=== PATIENT | female | born 1980 | race Caucasian/White ===

== ENCOUNTER 2016-12-17 08:11 | Day surgery (SDC) | payer BC ==
[2016-12-13 09:55] VITALS: BMI 26.0
[2016-12-17] MEDS ORDERED: BUPIVACAINE HCL/PF 0.5% (5MG/ML) 10 ML VIAL ONE (09:16)
[2016-12-17] MEDS ORDERED: LIDOCAINE 1%/EPI 1:100000 (50 ML MULTI DOSE VIAL) ONE (09:16)
[2016-12-17] MEDS ORDERED: ONDANSETRON 4 MG/2 ML VIAL IVPUSH PRN (09:58)
[2016-12-17] MEDS ORDERED: oxyCODONE HCL 5 MG TABLET PO PRN (09:58)
[2016-12-17] MEDS ORDERED: LACTATED RINGERS SOLUTION 1,000 ML IV SCH (10:00)
[2016-12-17] MEDS ORDERED: MIDAZOLAM HCL 2 MG/2 ML SINGLE DOSE VIAL ONE (10:02)
[2016-12-17] MEDS ORDERED: PROPOFOL 20 ML ONE (10:02)
[2016-12-17] MEDS ORDERED: ceFAZolin SODIUM 1 GM VIAL IVPB ONE (10:26)
[2016-12-17] MEDS ORDERED: BUPIVACAINE HCL/PF 0.5% (5MG/ML) 10 ML VIAL IJ ONE (10:30)
[2016-12-17] MEDS ORDERED: LIDOCAINE 1%/EPI 1:100000 (50 ML MULTI DOSE VIAL) INF ONE (10:30)
--- NOTE | 2016-12-17 10:52 | HP ---
Satellite [facility] - Chief Complaint Chief Complaint: left knee pain - Past Medical History Allergies/Adverse Reactions: Allergies Allergy/AdvReac Type Severity Reaction Status Date / Time No Known Allergies Allergy Verified 12/17/16 08:39 ...LMP: 12/07/16 - Current Medications Current Medications: Home Medications Medication Instructions Recorded Ergocalciferol (Vitamin D2) 2,000 unit PO DAILY 12/13/16 [Vitamin D2] Oxycodone HCl/Acetaminophen 1 - 2 tab PO Q6H #50 tab MDD 8 12/17/16 [Percocet 5-325 mg Tablet -] Satellite Physical Exam - Physical Examination Vital Signs: Vital Signs Period Temp Pulse Resp BP Sys/Mcintyre Pulse Ox Last 24 Hr 97.8 F 75 18 131/82 99 General Appearance: Well Nourished, Well Developed, Alert & Oriented x3 ENT: Clear Lung: Normal air movement Heart: Regular rate & rhythm Extremities: Other (left knee- + swelling, + ttp, decr rom, + mcmurrays, nvi MRI + mmt) Neurological: Intact, Alert, Oriented Satellite Impression/Plan - Impression/Plan Impression: left knee internal derangement Operative Procedure: left knee arthroscopy Date to be Performed: 12/17/16
--- NOTE | 2016-12-17 10:53 | OP ---
Operative Note - Note: Operative Date: 12/17/16 ([facility]) Pre-Operative Diagnosis: left knee internal derangement Operation: left knee arthroscopy with PMM Post-Operative Diagnosis: Same as Pre-op Surgeon: Alejandro Chandler Skip Loader: Merlin Christine Anesthesia: General, Local Specimens Removed: shavings Estimated Blood Loss (mls): 5 Operative Report Dictated: Yes
[2016-12-17 12:03] VITALS: TEMP 98.2
[2016-12-17 13:06] VITALS: BP 118/67; PULSE 73
--- NOTE | 2016-12-17 13:19 | OP ---
DATE OF OPERATION: 12/17/2016 PROCEDURE: Arthroscopy left knee with partial medial meniscectomy PREOPERATIVE DIAGNOSIS: Left medial meniscus. POSTOPERATIVE DIAGNOSIS: Left medial meniscus. SURGICAL ATTENDING: Alejandro Chandler MD ANESTHESIA: General with LMA CLOSURE: With 4-0 Nylon COMPLICATIONS: None ESTIMATED BLOOD LOSS: Negligible CONDITION: To recovery room in stable condition DESCRIPTION OF OPERATIVE PROCEDURE: Patient was taken to the operating room on December 17, 2016. General anesthesia with LMA was administered by the anesthesiologist. IV Kefzol was administered prophylactically prior to the case. Left lower extremity was prepped and draped in the usual sterile fashion. The superolateral and mediolateral infrapatellar portal sites were infiltrated with 1% Xylocaine with epinephrine. Superolateral portal was made with a 15-blade followed by blunt trocar. The knee was aspirated and inflated with a cocktail of 10 mL of 1% Xylocaine, 10 mL of 0.5% Marcaine, and 20 mL of arthroscopic saline. The medial and lateral infrapatellar portals were then made with the 15-blade followed by the blunt trocar. The scope was placed in the lateral suprapatellar portal and up into suprapatellar pouch. Pouch was visualized to be clean. The medial and lateral gutters were visualized to be clean. The undersurface of the patella and trochlea were visualized to be intact. With valgus stress, the medial compartment was entered. The medial menisci had a flap tear over its anterior portion, which was dbrided back to smooth, stable meniscal tissue with meniscal biter and arthroscopic shaver. The posterior was found to be intact. The medial femoral condyle was run and found to be intact as was the medial tibial plateau. At 90 degrees the ACL and PCL were visualized and both found to be intact. In the figure 4 position, the lateral compartment of the knee was entered. The lateral meniscus was visualized, probed, found to be intact. The lateral femoral condyle was run and found to be intact as was the lateral tibial plateau. The knee was irrigated with copious amounts of irrigation. The portals were closed with 4-0 nylon. Prior to closure, 20 mL of 0.5% Marcaine was infused into the knee for postoperative analgesia. A sterile pressure dressing was placed over the knee. Patient was awakened from anesthesia and transferred to recovery in stable condition. No complications. Estimated blood loss negligible. ALEJANDRO CHANDLER M.D. [id number]
--- NOTE | 2016-12-20 09:20 | PATH ---
Surgical Pathology Report Patient Name: TOMMIE KEARNEY [facility]. Rec. #: [id number] /Age/Gender: 1980 (Age: 36) / F Account: [id number] Location: [facility] SURGICAL Taken: 12/17/2016 Received: 12/17/2016 Reported: 12/20/2016 Physicians: Alejandro Chandler M.D. Specimen(s) Received SHAVINGS LEFT KNEE Clinical History Left meniscus tear Final Diagnosis KNEE, LEFT, ARTHROSCOPIC SHAVING: FIBROCARTILAGE WITH MYXOID DEGENERATIVE CHANGES, ALONG WITH PORTIONS OF SYNOVIUM WITH FIBROSIS, AND HYALINE CARTILAGE. Electronically Signed Joesph Teixeira M.D. Gross Description Received in formalin labeled "left knee shavings," is a 1.7 x 1.2 x 0.2 cm aggregate of tobar-yellow soft tissue fragments. The specimen is submitted in toto in one cassette. 12/17/201612/17/2016
== END 2016-12-17 13:06 | disposition home or self-care (01) ==
LOC: JASU-SURG 08:11
PROVIDERS: ATTEND Orthopaedic Surgery
PROC: 0SBD4ZZ Excision of Left Knee Joint, Percutaneous Endoscopic Approach (ICD-10-PCS; principal; 2016-12-17 09:45)
DX: S83.242A Other tear of medial meniscus, current injury, left knee, initial encounter (principal); X58.XXXA Exposure to other specified factors, initial encounter; Y93.9 Activity, unspecified; Y92.9 Unspecified place or not applicable
CPT/HCPCS: 84703; 88304-TC; 94760

== ENCOUNTER 2017-05-21 13:13 | Emergency (ER) | payer BC ==
[2017-05-21 13:18] VITALS: BP 154/86; PULSE 80; TEMP 98.5; BMI 26.4
--- NOTE | 2017-05-21 14:33 | PDOC ---
History of Present Illness - General Chief Complaint: ,Possible Stated Complaint: POSSIBLE Time Seen by Provider: 05/21/17 13:51 - History of Present Illness Initial Comments: 05/21/17 14:25 CHIEF COMPLAINT: HISTORY OF PRESENT ILLNESS: 36 yo F F with Rh negative blood type F presents to [facility] with concerns regarding Rhogam. Patient states that she is , LMP was early March. She denies any vaginal bleeding or abdominal cramping. She has no complaints, and states she just "thought she needed Rhogam as soon as I found out I was ." No recent travel or sick contacts. PAST MEDICAL HISTORY: Denies past medical history FAMILY HISTORY: Denies SOCIAL HISTORY:Denies tobacco, alcohol, illicit drug use. SURGICAL HISTORY: Denies ALLERGIES: No known drug allergies REVIEW OF SYSTEMS General/Constitutional: Denies fever or chills. HEENT: Denies change in vision. Denies ear pain or discharge. Denies sore throat. Cardiovascular: Denies chest pain or shortness of breath. Respiratory: Denies cough, wheezing, or hemoptysis. Gastrointestinal: Denies nausea, vomiting, diarrhea or constipation. Genitourinary: Denies dysuria, frequency, or change in urination. Musculoskeletal: Denies joint or muscle swelling or pain. Denies neck or back pain. Skin and breasts: Denies rash or easy bruising. PHYSICAL EXAM General Appearance: Well-appearing, appropriately dressed. No apparent distress , no intoxication. HEENT: EOMI, PERRLA. No photophobia, scleral icterus. Respiratory/Chest: Lungs CTAB. Cardiovascular: RRR. S1, S2. Gastrointestinal/Abdominal: Normal bowel sounds. Abdomen soft, non-distended. No tenderness or rebound tenderness. No organomegaly, pulsatile mass, guarding , hernia, hepatomegaly, splenomegaly. Musculoskeletal/Extremities: Normal inspection. FROM of all extremities, normal capillary refill. No tenderness to extremities, pedal edema, swelling, erythema or deformity. Integumentary: Appropriate color, dry, warm. No cyanosis, erythema, jaundice or rash Neurologic: roadmaster II-XII intact. Fully oriented, alert. Appropriate mood/affect. Motor strength 5/5. No appreciable EOM palsy, facial droop or sensory deficit. 05/21/17 14:42 Past History - Past Medical History Allergies/Adverse Reactions: Allergies Allergy/AdvReac Type Severity Reaction Status Date / Time No Known Allergies Allergy Verified 05/21/17 13:18 Home Medications: Ambulatory Orders NK [No Known Home Medication] 05/21/17 Other medical history: NONE - Psycho/Social/Smoking Cessation Hx Anxiety: No Suicidal Ideation: No Smoking History: Never smoked Hx Alcohol Use: Yes (SOCIAL) Drug/Substance Use Hx: No Substance Use Type: None Hx Substance Use Treatment: No *Physical Exam - Vital Signs Last Vital Signs Temp Pulse Resp BP Pulse Ox 98.5 F 80 20 154/86 100 05/21/17 13:15 05/21/17 13:15 05/21/17 13:15 05/21/17 13:15 05/21/17 13:15 ED Treatment Course - ADDITIONAL ORDERS Additional order review: Laboratory Results 05/21/17 13:52 Urine HCG, Qual Positive Medical Decision Making - Medical Decision Making 05/21/17 16:02 36 yo F F with Rh negative blood type F presents to fast track with concerns regarding Rhogam. Explained to patient indications for Rhogam and that she does not require this until she is 26-28 weeks or has vaginal bleeding during . Advised patient to return if she does experience vaginal bleeding and to f/u with OB for further evaluation of her new . Patient and verbalized understanding and agree to plan. *DC/Admit/Observation/Transfer Diagnosis at time of Disposition: - Discharge Dispostion Disposition: HOME Condition at time of disposition: Stable Admit: No - Patient Instructions Printed Discharge Instructions: Rh Explained, Rh Incompatibility and Isoimmunization Additional Instructions: Please establish care with a new OBGYN doctor at [facility] for further concerns regarding your . You do not need a Rhogam shot today; but you will need one at 26-28 weeks during your . If you begin to have any vaginal bleeding, fever, chills, cramping, pain, or any new or worsening symptoms, please return to the ER.
== END 2017-05-21 14:37 | disposition home or self-care (01) ==
LOC: JERFT 13:13 → JER 13:13 → JERFT 14:37
DX: O26.891 Other specified pregnancy related conditions, first trimester (principal); O36.0910 Maternal care for other rhesus isoimmunization, first trimester, not applicable or unspecified; Z3A.00 Weeks of gestation of pregnancy not specified
CPT/HCPCS: 84703; 99281-25

== ENCOUNTER 2017-06-04 17:57 | Emergency (ER) | payer BC ==
[2017-06-04 18:03] VITALS: BMI 26.5
--- NOTE | 2017-06-04 18:21 | PDOC ---
History of Present Illness - General History Source: Patient - History of Present Illness Timing/Duration: reports: constant <Harrison Arnold - Last Filed: 06/04/17 18:58> <Eloisa Martines - Last Filed: 06/04/17 20:37> - General Chief Complaint: Vaginal Bleeding Stated Complaint: VAGINAL BLEEDING () Time Seen by Provider: 06/04/17 18:10 Past History - Past Medical History Other medical history: NONE - Psycho/Social/Smoking Cessation Hx Anxiety: No Suicidal Ideation: No Smoking History: Never smoked Hx Alcohol Use: No Drug/Substance Use Hx: No Substance Use Type: None Hx Substance Use Treatment: No <Harrison Arnold - Last Filed: 06/04/17 18:58> <Eloisa Martines - Last Filed: 06/04/17 20:37> - Past Medical History Allergies/Adverse Reactions: Allergies Allergy/AdvReac Type Severity Reaction Status Date / Time No Known Allergies Allergy Verified 06/04/17 18:03 Home Medications: Ambulatory Orders NK [No Known Home Medication] 05/21/17 Review of Systems - Review of Systems Constitutional: No: Chills, Fever ABD/GI: No: Nausea, Vomiting, Abdominal cramping : No: Dysuria <Harrison Arnold - Last Filed: 06/04/17 18:58> *Physical Exam - Vital Signs Last Vital Signs Temp Pulse Resp BP Pulse Ox 98.0 F 101 H 20 147/100 100 06/04/17 18:00 06/04/17 18:00 06/04/17 18:00 06/04/17 18:00 06/04/17 18:00 - Physical Exam General Appearance: Yes: Appropriately Dressed. No: Apparent Distress HEENT: positive: Normal Voice Neck: positive: Supple Respiratory/Chest: negative: Respiratory Distress Female Pelvic Exam: positive: normal external exam, normal adnexa, vaginal bleeding (no clots, Os fingertip). negative: CMT, adnexal tenderness Gastrointestinal/Abdominal: positive: Normal Bowel Sounds, Soft. negative: Tender, Distended, Guarding Integumentary: positive: Dry, Warm Neurologic: positive: Fully Oriented, Alert, Normal Mood/Affect <Harrison Arnold - Last Filed: 06/04/17 18:58> - Vital Signs Last Vital Signs Temp Pulse Resp BP Pulse Ox 98.0 F 101 H 20 147/100 100 06/04/17 18:00 06/04/17 18:00 06/04/17 18:00 06/04/17 18:00 06/04/17 18:00 <Eloisa Martines - Last Filed: 06/04/17 20:37> ED Treatment Course - RADIOLOGY Radiology Studies Ordered: Category Date Time Status TRANSVAGINAL US PREG [US] Stat Ultrasound 06/04/17 18:03 Ordered <Harrison Arnold - Last Filed: 06/04/17 18:58> - ADDITIONAL ORDERS Additional order review: Laboratory Results 06/04/17 06/04/17 06/04/17 19:50 18:30 18:10 Beta HCG, Quant Urine Color Ltyellow Urine Appearance Clear Urine pH 6.0 Urine Protein Negative Urine Glucose (UA) Negative Urine Ketones Negative Urine Blood 2+ H Urine Nitrite Negative Urine Bilirubin Negative Urine Urobilinogen Negative Ur Leukocyte Esterase Negative Urine RBC 2 Urine WBC <1 Blood Type A NEGATIVE A NEGATIVE Antibody Screen Negative 06/04/17 18:10 Beta HCG, Quant 1210.9 Urine Color Urine Appearance Urine pH Urine Protein Urine Glucose (UA) Urine Ketones Urine Blood Urine Nitrite Urine Bilirubin Urine Urobilinogen Ur Leukocyte Esterase Urine RBC Urine WBC Blood Type Antibody Screen - Medications Given in the ED: ED Medications Discontinued Medications Generic Name Dose Route Start Last Admin Trade Name Freq PRN Reason Stop Dose Admin Rho Immune Globulin 300 unit 06/04/17 19:17 06/04/17 20:33 Rhogam Plus IM 06/04/17 19:18 300 unit ONCE ONE Administration <Eloisa Martines - Last Filed: 06/04/17 20:37> Medical Decision Making - Medical Decision Making 06/04/17 18:16 36 yo F, , (1 spon AB) ~ 7 weeks by dates, scheduled for first on June 14, here with significant vaginal bleeding that started approximately 20 minutes 20 minutes ago with multiple clots. No abdominal cramping, back pain, dysuria, nausea, vomiting, fever or chills See exam 1st trimester bleed Stable w/ benign abd and sig vag bleed w/ fingertip OS R/o spon AB vs ectopic vs vag bleed of nl preg -T&S (pt reports A neg blood type, will a/w results today prior to rhogam) -Beta -UA -US 06/04/17 18:21 06/04/17 18:58 Signed out to JESSIE Martines pending beta, type and screen and ultrasound <Harrison Arnold - Last Filed: 06/04/17 18:58> *DC/Admit/Observation/Transfer <Harrison Arnold - Last Filed: 06/04/17 18:58> - Discharge Dispostion Admit: No <Eloisa Martines - Last Filed: 06/04/17 20:37> Diagnosis at time of Disposition: Spontaneous - Discharge Dispostion Disposition: HOME Condition at time of disposition: Stable - Patient Instructions Printed Discharge Instructions: DI for Miscarriage, Dealing With Miscarriage Additional Instructions: Follow up with your [facility] next week on the as scheduled. Return if any concern for further evaluation. You need to have your blood levels rechecked to be sure that your Beta HCG level continue to decrease. Print Language: ROMANSH
[2017-06-04 18:36] LABS: URINE APPEARANCE CLEAR; URINE BILIRUBIN NEGATIVE (NEGATIVE); URINE BLOOD 2+ (NEGATIVE); URINE COLOR LTYELLOW; URINE GLUCOSE (UA) NEGATIVE (NEGATIVE); URINE KETONE NEGATIVE (NEGATIVE); URINE LEUK ESTERASE NEGATIVE (NEGATIVE); URINE NITRITE NEGATIVE (NEGATIVE); URINE PROTEIN NEGATIVE (NEGATIVE); URINE UROBILINOGEN NEGATIVE mg/dL (0.2-1.0)
[2017-06-04 18:45] LABS: URINE RBC 2 /hpf (0-3); URINE WBC <1 /hpf (3-5)
[2017-06-04] MEDS ORDERED: RHO(D) IMMUNE GLOBULIN 1,500 UNIT DISP.SYRIN IM ONE (19:17)
[2017-06-04 20:46] VITALS: BP 136/89; PULSE 78; TEMP 98.4
== END 2017-06-04 20:46 | disposition home or self-care (01) ==
LOC: JER 17:57
PROC: 3E0234Z Introduction of Serum, Toxoid and Vaccine into Muscle, Percutaneous Approach (ICD-10-PCS; principal; 2017-06-04)
DX: O02.1 Missed abortion (principal); Z3A.01 Less than 8 weeks gestation of pregnancy; Z29.13 Encounter for prophylactic Rho(D) immune globulin
CPT/HCPCS: 36415; 76817-TC; 81003; 81015; 84702; 86900; 86901; 86999; 99283-25; J1561